=== PATIENT | male | born 1940 | race Caucasian/White ===

== ENCOUNTER → 2021-11-22 | Outpatient (CLI) | payer MEDICARE, OTHER, SELFPAY ==
--- NOTE | 2021-11-22 11:00 | TISS_PTH ---
PATIENT: ARPAN CHANDLER Jr. LOC: [facility] U#:[id number] AGE/SX: 81/M ROOM: RE11/22/[address]: Dr. Danie Tinajero DDS : 1940 BED: DIS: 11/22/2021 SPEC #: [id number] RECD: 11/22/21 11:58 STATUS: SCOTT DAVID #: [id number] EVA: 11/22/21 11:[address]: Danie Tinajero DEPT: SURGICAL PATHOLOGY RECD BY: Chemo Ellis Tissues: Mouth, NOS Procedures: Special Stain Group I Surgery Specimen Level IV GMS Stain (control) HEADER OPERATION: Right cheek biopsy PRE-OP DIAGNOSIS: Appears as lichen planus TISSUE SUBMITTED: Right cheek MICROSCOPIC DIAGNOSIS Skin lesion of right cheek, biopsy: Consistent with lichen planus. Hyperkeratosis. Minimal superficial acute inflammation. Negative for fungal organisms. See comment. AM:[place] 11/23/2021 COMMENT GMS stain with matched control was used in the evaluation of this case. Case has been reviewed in consultation with Dr. Taylor who concurs with the above diagnosis. IDC:SJ MICROSCOPIC DESCRIPTION Slides are reviewed. GROSS DESCRIPTION Received in fixative is one container labeled with the patient's name and designated cheek. The specimen consists of a piece of mckay mucosal tissue measuring 1 x 0.4 x 0.2 cm. The specimen is inked, bisected and submitted entirely in one cassette. / GABRIELA:[place] 11/22/2021 TC:3 CPT: 78335, 51619
== END | disposition home or self-care (01) ==
LOC: LABSPEC 12:26
PROVIDERS: Visit Provider Dentist Oral and Maxillofacial Surgery
DX: L85.9 Epidermal thickening, unspecified (principal)
CPT/HCPCS: 88305; 88312

== ENCOUNTER 2024-11-01 08:13 | Day surgery (SDC) | payer MEDICARE, OTHER, SELFPAY ==
[2024-11-01] VITALS (8 sets, daily range): BP systolic 106–126; BP diastolic 64–76; PULSE 62–77; RESP 16–18; TEMP 36.2–36.4; O2SAT 92–98; BMI 30.4
[2024-11-01] MEDS: Lactated Ringers 1,000 ML 1000 ML IV (08:07)
[2024-11-01] MEDS: Lactated Ringers 1,000 ML 15 ML IV (08:45)
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
--- NOTE | 2024-11-01 09:15 | EGD_PTH ---
PATIENT: ARPAN CHANDLER Jr. LOC: [place] U#:[id number] AGE/SX: 84/M ROOM: RE11/01/[address]: Dr. Ben Waite DO : 1940 BED: DIS: 11/01/2024 SPEC #: [id number] RECD: 11/01/24 12:43 STATUS: SCOTT REFabiola #: [id number] EVA: 11/01/24 09:[address]: Ben Waite DEPT: SURGICAL PATHOLOGY RECD BY: Preet Bunch ENTERED: 11/01/24 14:44 SP TYPE: EGD BIOPSY MARSHALL DR: Dr. Wali Gagnon MD Tissues: A - Esophagus, NOS Procedures: Immunohistochemical Stains Special Stain Group I Surgery Specimen Level IV GMS Stain (control) HEADER OPERATION: EGD with biopsy PRE-OP DIAGNOSIS: GERD TISSUE SUBMITTED: A- Distal esophagus biopsy MICROSCOPIC DIAGNOSIS A. Distal esophagus, biopsy: Squamous mucosa with focal reactive changes, necrosis and acute inflammation. IHC for HSV (herpes simplex virus types I&II) is PENDING and will be reported in an addendum. PASD stain is negative for fungal organisms. MICROSCOPIC DESCRIPTION Slides are reviewed. ?All matched controls reacted appropriately. These tests were developed and their performance characteristics determined by [facility]. They may not have been cleared or approved by the U.S. Food and Drug Administration. The FDA has determined that such clearance or approval is not necessary.? The above immunohistochemical?markers and/or special stains have been reviewed by the Pathologist. GROSS DESCRIPTION A. Received in fixative is one container labeled with the patient's name and designated Distal esophagus biopsy. The specimen consists of three irregular fragments of light mckay soft tissue, each measuring 0.3 cm. The specimen is totally submitted in one cassette. [place] 11/01/2024 CPT:35675,63061,75526 ADDENDUM ADDENDUM ADDENDUM ADDENDUM 11/19/2024 09:47 ADDENDUM 11/19/2024 09:47 ADDENDUM 11/19/2024 09:47 ADDENDUM 11/19/2024 09:47 ADDENDUM 11/19/2024 09:47 This addendum is to report the findings of the HSV immunostain: IHC for HSV (herpes simplex virus types I&II) is negative.
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
--- NOTE | 2024-11-01 10:15 | OP.PROVAT_ITS ---
11/01/2024 Wali Gagnon [address] [place] [address] Re : Upper GI endoscopy procedure for Frank Epperson Dear Dr. Gagnon This procedure was performed on Friday, November 01, 2024. My impressions and recommendations are as follows: Impressions : - LA Grade C reflux esophagitis with no bleeding. Biopsied. - Hiatal hernia. - No gross lesions in the entire stomach. - Non-bleeding duodenal ulcers with no stigmata of bleeding. Recommendations : - Discharge patient to home. - Resume previous diet. - Continue present medications. My findings are described in the full procedure note, which is enclosed. If I can be of further assistance, please feel free to contact me at . Sincerely, Ben Waite, 11/01/2024 10:14:24 AM This report has been signed electronically.
--- NOTE | 2024-11-01 10:15 | OP.EGD_ITS ---
Patient Name: Frank Epperson Procedure Date: 11/01/2024 9:36 AM Date of : 1940 Age: 84 Procedure: Upper GI endoscopy Indications: Heartburn, Suspected reflux esophagitis, Failure to respond to medical treatment Providers: Ben Waite DO Referring MD: Wali Gagnon Medicines: Monitored Anesthesia Care Patient Profile: This is an 84 year old male. Refer to note in patient chart for documentation of history and physical. Patient has symptoms. Patient has symptoms of acute heartburn, chronic heartburn and chronic nausea. Complications: No immediate complications. Procedure: Pre-Anesthesia Assessment: - Prior to the procedure, a History and Physical was performed, and patient medications and allergies were reviewed. The patient is competent. The risks and benefits of the procedure and the sedation options and risks were discussed with the patient. All questions were answered and informed consent was obtained. Patient identification and proposed procedure were verified by the physician in the pre-procedure area. Mental Status Examination: alert and oriented. Airway Examination: normal oropharyngeal airway and neck mobility. CV Examination: normal. Prophylactic Antibiotics: The patient does not require prophylactic antibiotics. Prior Anticoagulants: The patient has taken no anticoagulant or antiplatelet agents. ASA Grade Assessment: II - A patient with mild systemic disease. After reviewing the risks and benefits, the patient was deemed in satisfactory condition to undergo the procedure. The anesthesia plan was to use monitored anesthesia care (MAC). Immediately prior to administration of medications, the patient was re-assessed for adequacy to receive sedatives. The heart rate, respiratory rate, oxygen saturations, blood pressure, adequacy of pulmonary ventilation, and response to care were monitored throughout the procedure. The physical status of the patient was re-assessed after the procedure. After obtaining informed consent, the endoscope was passed under direct vision. Throughout the procedure, the patient's blood pressure, pulse, and oxygen saturations were monitored continuously. The Endoscope was introduced through the mouth, and advanced to the second part of duodenum. The upper GI endoscopy was accomplished without difficulty. The patient tolerated the procedure well. Scope In: 9:53:35 AM Scope Out: 9:56:59 AM Total Procedure Duration Time 0 hours 3 minutes 24 seconds Findings: LA Grade C (one or more mucosal breaks continuous between tops of 2 or more mucosal folds, less than 75% circumference) esophagitis with no bleeding was found 39 to 40 cm from the incisors. Biopsies were taken with a cold forceps for histology. Verification of patient identification for the specimen was done. Estimated blood loss was minimal. Biopsies were taken with a cold forceps for histology. Verification of patient identification for the specimen was done. Estimated blood loss was minimal. A hiatal hernia was present. No gross lesions were noted in the entire examined stomach. Four non-bleeding linear duodenal ulcers with no stigmata of bleeding were found in the duodenal bulb. Impression: - LA Grade C reflux esophagitis with no bleeding. Biopsied. - Hiatal hernia. - No gross lesions in the entire stomach. - Non-bleeding duodenal ulcers with no stigmata of bleeding. Recommendation: - Discharge patient to home. - Resume previous diet. - Continue present medications. Procedure Code(s): --- Professional --- 77959, Esophagogastroduodenoscopy, flexible, transoral; with biopsy, single or multiple CPT copyright 2021 [employer]. All rights reserved. The codes documented in this report are preliminary and upon shoe fitter review may be revised to meet current compliance requirements. Ben Waite DO 11/01/2024 10:14:24 AM This report has been signed electronically. Number of Addenda: 0 Note Initiated On: 11/01/2024 9:36 AM
--- NOTE | 2024-11-01 10:41 | PCM.POST.ANE ---
Anesthesia: Postop Eval I Current Vital Signs Temperature: 97.6 F Pulse Rate: 62 Blood Pressure: 108/71 Respiratory Rate: 18 Pulse Ox: 98 Assessment Airway patent: Yes Spontaneous unlabored respirations: Yes nausea: No Vomiting: No Anesthesia Complication: No Fluid Hydration Crystalloid volume administer (ml): 1,000 Total IV fluid infused: 1,000 Progress Note Anesthesia document: Postop Eval 1 completed: Yes
== END 2024-11-01 11:28 | disposition home or self-care (01) ==
LOC: EN 08:13 → AC 08:14
PROVIDERS: PCP Family Medicine; Referring Provider Family Medicine; Visit Provider Internal Medicine Gastroenterology
PROC: 0DJ08ZZ Inspection of Upper Intestinal Tract, Via Natural or Artificial Opening Endoscopic (ICD-10-PCS; CPT 43235; principal; 2024-11-01 09:10)
DX: K21.00 Gastro-esophageal reflux disease with esophagitis, without bleeding (principal); K44.9 Diaphragmatic hernia without obstruction or gangrene; K26.9 Duodenal ulcer, unspecified as acute or chronic, without hemorrhage or perforation; I10 Essential (primary) hypertension; Z79.899 Other long term (current) drug therapy
CPT/HCPCS: 43239; 88305; 88312; 88342